=== PATIENT | male | born 1970 | race Caucasian/White ===

== ENCOUNTER 2016-07-24 16:28 | Emergency (ER) | payer BC ==
[~2016-07-24] VITALS: Ht 182.9 cm; Wt 104.2 kg
[~2016-07-24 16:28] MED LIST: CHANTIX1 MG PO; CITALOPRAM HBR20 MG PO; NAPROSYN500 MG PO; PREDNISONE20 MG PO; SIMVASTATIN80 MG
[2016-07-24] MEDS ORDERED: LIDODERM 5% P1 PATCH TD (16:39)
[2016-07-24] MEDS ORDERED: VALIUM5 MG PO (16:39)
[2016-07-24] MEDS ORDERED: MEDROL DOSEPAK4 MG PO (16:39)
[2016-07-24] MEDS ORDERED: NAPROSYN500 MG PO (16:40)
[2016-07-24 17:06] VITALS: BP 154/91
== END 2016-07-24 17:07 | disposition home or self-care (01) ==
LOC: EME 16:28
DX: M54.41 Lumbago with sciatica, right side (principal)
CPT/HCPCS: 99281; 99283